=== PATIENT | female | born 1995 | race Caucasian/White ===

== ENCOUNTER 2020-09-27 07:20 | Observation (INO) | payer OTHER ==
[2020-09-27] MEDS ORDERED: Misoprostol 50 MCG (1/2 of 100 MCG) Tab VAG ONE (08:15)
[2020-09-27] MEDS ORDERED: Sodium Chloride 0.9% 10 ML Syringe FLUSH PRN (08:19)
--- NOTE | 2020-09-27 08:30 | PCM.LDHP ---
L&D History of Present Illness - General Date of Service: 09/27/20 (induction for HTN ) Admit Problem/Dx: Patient Status Order with Admit Dx/Problem 09/27/20 08:20 Patient Status [ADT] Routine Admission Diagnosis/Problem Admission Diagnosis/Problem Gestational hypertension Source of Information: Patient History Limitations: Reports: No Limitations - History of Present Illness Introduction:: 25 year old G1 who is 39 weeks presents for induction of labor for gestational hypertension (controlled with medication) and hyperthyroid of . CHIARA 10/04/20. Has struggled through her with hyperemesis, contractions and then elevated blood pressure has been on Labetalol since 32 weeks. 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: Reports: : 1 LMP (Approximate): (CHIARA 10/04/20) H&P Review of Systems - Review of Systems: Review Of Systems: See Below General: Reports: No Symptoms HEENT: Reports: No Symptoms Pulmonary: Reports: No Symptoms Cardiovascular: Denies: Edema Gastrointestinal: Reports: Decreased Appetite, Nausea Genitourinary: Reports: No Symptoms Musculoskeletal: Reports: No Symptoms Skin: Reports: No Symptoms Psychiatric: Reports: No Symptoms Neurological: Reports: No Symptoms Hematologic/Lymphatic: Reports: No Symptoms Immunologic: Reports: No Symptoms L&D Exam - Exam Exam: See Below - OB Specific Contraction Intensity: Mild Movement: Active Heart Tones: Present Heart Tones per Min: 120 Heart Rate (FHR) Variability: Moderate (6-25 bmp) Presentation: Vertex Estimated Weight: 6-7 pounds - Leung Score Leung Score Cervix Position: Midposition Leung Score Consistency: Soft Leung Score Effacement: 51-70% Leung Score Dilation: 1-2 cm Leung Score Infant's Station: -1 ,0 Leung Score Total: 8 - Exam General: Alert, Oriented HEENT: PERRLA, Conjunctiva Clear, Mucosa Moist & [place] Neck: Supple Lungs: Normal Respiratory Effort Cardiovascular: Regular Rate GI/Abdominal Exam: Soft Rectal Exam: Normal Exam Genitourinary: Normal external exam, Cervical dilitation, Enlarged uterus Back Exam: Full Range of Motion Extremities: Non-Tender, No Pedal Edema, Normal Capillary Refill Skin: Warm Neurological: Cranial Nerves Intact Psychiatric: Alert, Normal Affect, Normal Mood - Patient Data Lab Results Last 24 hrs: Laboratory Results - last 24 hr 09/27/20 09/27/20 09/27/20 Range/Units 07:27 07:28 07:45 WBC 7.9 (4.5-11.0) K/uL RBC 3.71 (3.30-5.50) M/uL Hgb 11.2 L (12.0-15.0) g/dL Hct 33.7 L (36.0-48.0) % MCV 91 (80-98) fL MCH 30 (27-31) pg MCHC 33 (32-36) % Plt Count 203 (150-400) K/uL Neut % (Auto) 62 (36-66) % Lymph % (Auto) 29 (24-44) % [place] % (Auto) 8 H (2-6) % Eos % (Auto) 1 L (2-4) % Baso % (Auto) 0 (0-1) % Urine Color Yellow (YELLOW) Urine Appearance Slightly cloudy A (CLEAR) Urine pH 6.5 (5.0-8.0) Ur Specific [place] 1.015 (1.008-1.030) Urine Protein Negative (NEGATIVE) mg/dL Urine Glucose (UA) Negative (NEGATIVE) mg/dL Urine Ketones Negative (NEGATIVE) mg/dL Urine Occult Blood Negative (NEGATIVE) Urine Nitrite Negative (NEGATIVE) Urine Bilirubin Negative (NEGATIVE) Urine Urobilinogen 0.2 (0.2-1.0) EU/dL Ur Leukocyte Esterase Negative (NEGATIVE) Urine RBC Not seen (0-5) Urine WBC 0-5 (0-5) Ur Epithelial Cells Moderate Amorphous Sediment Not seen Urine Bacteria Many Urine Mucus Not seen Urine Opiates Screen Negative (NEGATIVE) Ur Oxycodone Screen Negative (NEGATIVE) Urine Methadone Screen Negative (NEGATIVE) Ur Propoxyphene Screen Negative (NEGATIVE) Ur Barbiturates Screen Negative (NEGATIVE) Ur Tricyclics Screen Negative (NEGATIVE) Ur Phencyclidine Scrn Negative (NEGATIVE) Ur Amphetamine Screen Negative (NEGATIVE) U Methamphetamines Scrn Negative (NEGATIVE) Urine MDMA Screen Negative (NEGATIVE) U Benzodiazepines Scrn Negative (NEGATIVE) U Cocaine Metab Screen Negative (NEGATIVE) U Marijuana (THC) Screen Negative (NEGATIVE) Result Diagrams: 09/27/20 07:45 - Problem List (1) Hypertension affecting SNOMED Code(s): 17223188261931 ICD Code: O16.9 - UNSPECIFIED MATERNAL HYPERTENSION, UNSPECIFIED TRIMESTER Status: Acute Current Visit: Yes (2) SNOMED Code(s): 89407212 ICD Code: Z34.90 - ENCNTR FOR SUPRVSN OF NORMAL , UNSP, UNSP TRIMESTER Status: Acute Current Visit: Yes Qualifiers: Weeks of gestation: 39 weeks Qualified Code(s): Z3A.39 - 39 weeks gestation of (3) Hyperthyroidism complicating SNOMED Code(s): 62596668651985 ICD Code: O99.280 - ENDO, NUTRITIONAL AND METAB DISEASES COMP PREG, UNSP TRI; E05.90 - THYROTOXICOSIS, UNSP WITHOUT THYROTOXIC CRISIS OR STORM Status: Acute Current Visit: Yes Qualifiers: Trimester: third trimester Qualified Code(s): O99.283 - Endocrine, nutritional and metabolic diseases complicating , third trimester; E05.90 - Thyrotoxicosis, unspecified without thyrotoxic crisis or storm Problem List Initiated/Reviewed/Updated: Yes Orders Last 24hrs: Active Orders 24 hr Category Date Time Status Patient Status [ADT] Routine ADT 09/27/20 08:20 Ordered Communication Order [RC] ASDIRECTED Care 09/27/20 08:20 Ordered Heart Tones [RC] PER UNIT ROUTINE Care 09/27/20 08:20 Ordered Non Stress Test [RC] Click to Edit Care 09/27/20 08:20 Ordered May Shower [RC] ASDIRECTED Care 09/27/20 08:19 Ordered Notify Provider Vital Signs [RC] PRN Care 09/27/20 08:19 Ordered Notify Provider [RC] PRN Care 09/27/20 08:20 Ordered Up ad Alena [RC] ASDIRECTED Care 09/27/20 08:19 Ordered Vital Signs [RC] PER UNIT ROUTINE Care 09/27/20 08:20 Ordered Regular Diet [DIET] Diet 09/27/20 Dinner Ordered BPP wo NST [US] Routine Exams 09/27/20 07:00 Ordered Oxytocin/Normal Saline [Pitocin in NS 20 Units/1,000 ML Med 09/27/20 08:24 Ordered ] 20 unit in 1,000 ml IV ONETIME Sodium Chloride 0.9% [Saline Flush] Med 09/27/20 08:19 Ordered 10 ml FLUSH ASDIRECTED PRN Saline Lock Insert [OM.PC] Routine Oth 09/27/20 08:20 Ordered Resuscitation Status Routine Resus Stat 09/27/20 08:19 Ordered Medication Orders Oxytocin/Sodium Chloride (Pitocin In Ns 20 Units/1,000 Ml) 20 unit in 1,000 mls @ 999 mls/hr IV ONETIME ONE; Protocol Stop: 09/27/20 09:24 Sodium Chloride (Sodium Chloride 0.9% 10 Ml Syringe) 10 ml FLUSH ASDIRECTED PRN PRN Reason: Keep Vein Open Assessment/Plan Comment:: 09/27/20 39 week G1 IUP with gestation hypertension and hyperthyroid induction for complications PLAN: Miso 50 mcg this morning and repeat at noon if needed. plan for a vaginal delivery
--- NOTE | 2020-09-27 11:02 | US ---
BPP wo NST INDICATION: induction of labor COMPARISON: None FINDINGS: Single live IUP in: Vertex position heart rate: 121 BPM. Biophysical profile score: 6/8. There is a score of 0 on breathing movement YO: 15.3 cm. IMPRESSION: Abnormal biophysical profile score is 6/8 No breathing movement Results were given to provider at the time of the examination
--- NOTE | 2020-09-27 12:20 | PCM.PNLD ---
Labor Progress Note - VS & Meds Vital Signs: Last Vital Signs Temp 96.4 F L 09/27/20 11:13 Pulse 74 09/27/20 11:13 Resp 18 09/27/20 11:13 BP 137/87 09/27/20 11:13 Pulse Ox 97 09/27/20 11:13 Active Medications: Current Medications Oxytocin/Sodium Chloride (Pitocin In Ns 20 Units/1,000 Ml) 20 unit in 1,000 mls @ 999 mls/hr IV ONETIME ONE; Protocol Stop: 09/27/20 13:00 Sodium Chloride (Sodium Chloride 0.9% 10 Ml Syringe) 10 ml FLUSH ASDIRECTED PRN PRN Reason: Keep Vein Open Discontinued Medications Misoprostol (Misoprostol 50 Mcg (1/2 Of 100 Mcg) Tab) 50 mcg VAG ONETIME ONE Stop: 09/27/20 08:16 Last Admin: 09/27/20 08:08 Dose: 50 mcg Documented by: - Uterine Contractions Uterine Monitoring Mode: External [place] Contraction Frequency (min): 1.5-2 Contraction Duration (sec): 40-80 Contraction Intensity: Mild Uterine Resting Tone: Soft - Monitoring Heart Rate (FHR) Baseline: 120 Heart Rate (FHR) Variability: Moderate (6-25 bmp) Decelerations: None Strip Review: Category I - Vaginal Exam Dilation (cm): 1 Effacement (Percent): 80 Station: 0 Cervical Position: Midposition Sterile Vaginal Exam Performed By: Jessie Maurice Vaginal Exam Comment: baby lower and more effacement - Labor Progress (Free Text) Labor Progress: contractions are close together, so no second dose at this time. membranes stripped doing well up and about reassess at at 3 pm
--- NOTE | 2020-09-27 16:49 | PCM.PNLD ---
Labor Progress Note - VS & Meds Vital Signs: Last Vital Signs Temp 97.4 F 09/27/20 15:04 Pulse 107 H 09/27/20 15:04 Resp 18 09/27/20 15:04 BP 122/69 09/27/20 15:04 Pulse Ox 97 09/27/20 15:04 Active Medications: Current Medications Sodium Chloride (Sodium Chloride 0.9% 10 Ml Syringe) 10 ml FLUSH ASDIRECTED PRN PRN Reason: Keep Vein Open Discontinued Medications Oxytocin/Sodium Chloride (Pitocin In Ns 20 Units/1,000 Ml) 20 unit in 1,000 mls @ 999 mls/hr IV ONETIME ONE; Protocol Stop: 09/27/20 13:00 Misoprostol (Misoprostol 50 Mcg (1/2 Of 100 Mcg) Tab) 50 mcg VAG ONETIME ONE Stop: 09/27/20 08:16 Last Admin: 09/27/20 08:08 Dose: 50 mcg Documented by: - Uterine Contractions Uterine Monitoring Mode: External [place] Contraction Frequency (min): 1.5-5 Contraction Duration (sec): 40-90 Contraction Intensity: Mild Uterine Resting Tone: Soft - Monitoring Heart Rate (FHR) Baseline: 120 Heart Rate (FHR) Variability: Moderate (6-25 bmp) Decelerations: None Strip Review: Category I - Vaginal Exam Dilation (cm): 1 Effacement (Percent): 90 Station: 0 Cervical Position: Midposition Sterile Vaginal Exam Performed By: Jessie Maurice Vaginal Exam Comment: baby lower and more effacement - Labor Progress (Free Text) Labor Progress: no real labor, has done cervical ripening. She is hailey but mildly Plan return on All lab normal reviewed sign and symptoms of active labor and when to return
== END 2020-09-27 17:20 | disposition home or self-care (01) ==
LOC: JP.OB 07:20 → MERGE 07:20
PROVIDERS: ADMIT Nurse Practitioner Family; ATTEND Nurse Practitioner Family
DX: O13.3 Gestational [pregnancy-induced] hypertension without significant proteinuria, third trimester (principal); O99.283 Endocrine, nutritional and metabolic diseases complicating pregnancy, third trimester; E05.90 Thyrotoxicosis, unspecified without thyrotoxic crisis or storm; Z3A.39 39 weeks gestation of pregnancy
CPT/HCPCS: 36415; 76819; 76819-26; 80053; 80305-QW; 81001; 82570; 83615; 83735; 84156; 84443; 84550; 85025; 99211; A9270-GY; G0378

== ENCOUNTER 2020-09-29 06:56 | Inpatient (IN) | payer OTHER ==
[2020-09-29] MEDS ORDERED: Misoprostol 50 MCG (1/2 of 100 MCG) Tab ONE (07:57)
[2020-09-29] MEDS ORDERED: Misoprostol 50 MCG (1/2 of 100 MCG) Tab VAG ONE (07:57)
[2020-09-29] MEDS ORDERED: Sodium Chloride 0.9% 10 ML Syringe FLUSH PRN (08:04)
--- NOTE | 2020-09-29 08:21 | PCM.LDHP ---
L&D History of Present Illness - General Date of Service: 09/29/20 (09/29/20) Admit Problem/Dx: Patient Status Order with Admit Dx/Problem 09/29/20 08:05 Patient Status [ADT] Routine Admission Diagnosis/Problem Admission Diagnosis/Problem Source of Information: Patient History Limitations: Reports: No Limitations - History of Present Illness Timing/Duration: Reports: minutes: (2) Location, : Reports: Abdomen Severity: Mild Improves with: Reports: None Worsens with: Reports: None - Related Data Allergies/Adverse Reactions: Allergies Allergy/AdvReac Type Severity Reaction Status Date / Time No Known Allergies Allergy Verified 09/27/20 14:19 Home Medications: Home Meds Omeprazole 20 mg PO DAILY 09/02/20 [History] Ondansetron [Zofran ODT] 4 mg PO Q6H PRN 09/02/20 [History] Vits #93/Iron Fum/FA [ Formula Tablet] 1 tab PO DAILY 09/02/20 [History] NIFEdipine [Procardia] 10 mg PO Q6HR 09/27/20 [History] hydrOXYzine HCL [hydrOXYzine] 25 mg PO Q6HR PRN 09/27/20 [History] Past Medical History Other Cardiovascular History: Gestational hypertension Respiratory History: Reports: 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 (Approximate): (10/04/20) Endocrine/Metabolic History: Reports: Hyperthyroidism Other Endocrine/Metabolic History: in - Past Surgical History HEENT Surgical History: Reports: Myringotomy w Tube(s), Tonsillectomy Respiratory Surgical History: Reports: None Social & Family History - Tobacco Use Tobacco Use Status *Q: Never Tobacco User Second Hand Smoke Exposure: No - Caffeine Use Caffeine Use: Reports: Coffee, Soda - Recreational Drug Use Recreational Drug Use: No H&P Review of Systems - Review of Systems: Review Of Systems: See Below General: Reports: No Symptoms HEENT: Reports: No Symptoms Pulmonary: Reports: No Symptoms Cardiovascular: Reports: No Symptoms Gastrointestinal: Reports: No Symptoms Genitourinary: Reports: No Symptoms Musculoskeletal: Reports: No Symptoms Skin: Reports: No Symptoms Psychiatric: Reports: No Symptoms Neurological: Reports: No Symptoms Hematologic/Lymphatic: Reports: No Symptoms Immunologic: Reports: No Symptoms L&D Exam - Exam Exam: See Below - Vital Signs Vital Signs: Last Vital Signs Temp 97.4 F 09/29/20 07:25 Pulse 65 09/29/20 07:25 Resp 16 09/29/20 07:25 BP 118/80 09/29/20 07:25 Pulse Ox 97 09/29/20 07:25 Weight: 171 lb - OB Specific Contraction Intensity: Mild Movement: Active Heart Tones: Present Heart Tones per Min: 125 Heart Rate (FHR) Variability: Moderate (6-25 bmp) Presentation: Vertex Estimated Weight: 7-8 pounds - Leung Score Leung Score Cervix Position: Anterior Leung Score Consistency: Soft Leung Score Effacement: >80% Leung Score Dilation: 1-2 cm Leung Score 's Station: -1 ,0 Leung Score Total: 10 - Exam General: Alert, Oriented HEENT: PERRLA, Mucosa Moist & [place] Neck: Supple Lungs: Clear to Auscultation, Normal Respiratory Effort Cardiovascular: Regular Rate, Regular Rhythm GI/Abdominal Exam: Normal Bowel Sounds Rectal Exam: Normal Exam Genitourinary: Normal external exam Back Exam: Normal Inspection Extremities: Normal Inspection, No Pedal Edema Skin: Warm Neurological: Cranial Nerves Intact Psychiatric: Alert, Normal Affect, Normal Mood - Patient Data Lab Results Last 24 hrs: Laboratory Results - last 24 hr 09/29/20 09/29/20 09/29/20 Range/Units 07:03 07:03 07:18 WBC 8.7 (4.5-11.0) K/uL RBC 3.95 (3.30-5.50) M/uL Hgb 11.7 L (12.0-15.0) g/dL Hct 35.9 L (36.0-48.0) % MCV 91 (80-98) fL MCH 30 (27-31) pg MCHC 33 (32-36) % Plt Count 210 (150-400) K/uL Urine Color Yellow (YELLOW) Urine Appearance Cloudy A (CLEAR) Urine pH 6.0 (5.0-8.0) Ur Specific [place] 1.015 (1.008-1.030) Urine Protein Negative (NEGATIVE) mg/dL Urine Glucose (UA) Negative (NEGATIVE) mg/dL Urine Ketones Negative (NEGATIVE) mg/dL Urine Occult Blood Moderate H (NEGATIVE) Urine Nitrite Negative (NEGATIVE) Urine Bilirubin Negative (NEGATIVE) Urine Urobilinogen 0.2 (0.2-1.0) EU/dL Ur Leukocyte Esterase Small H (NEGATIVE) Urine RBC 5-10 H (0-5) Urine WBC 5-10 H (0-5) Ur Epithelial Cells Many Amorphous Sediment Not seen Urine Bacteria Many Urine Mucus Moderate Urine Opiates Screen Negative (NEGATIVE) Ur Oxycodone Screen Negative (NEGATIVE) Urine Methadone Screen Negative (NEGATIVE) Ur Propoxyphene Screen Negative (NEGATIVE) Ur Barbiturates Screen Negative (NEGATIVE) Ur Tricyclics Screen Negative (NEGATIVE) Ur Phencyclidine Scrn Negative (NEGATIVE) Ur Amphetamine Screen Negative (NEGATIVE) U Methamphetamines Scrn Negative (NEGATIVE) Urine MDMA Screen Negative (NEGATIVE) U Benzodiazepines Scrn Negative (NEGATIVE) U Cocaine Metab Screen Negative (NEGATIVE) U Marijuana (THC) Screen Negative (NEGATIVE) Result Diagrams: 09/29/20 07:18 - Problem List (1) SNOMED Code(s): 48584208 ICD Code: Z34.90 - ENCNTR FOR SUPRVSN OF NORMAL , UNSP, UNSP TRIMESTER Status: Acute Current Visit: Yes Qualifiers: Weeks of gestation: 39 weeks Qualified Code(s): Z3A.39 - 39 weeks gestation of (2) Hyperthyroidism complicating SNOMED Code(s): 99300114300347 ICD Code: O99.280 - ENDO, NUTRITIONAL AND METAB DISEASES COMP PREG, UNSP TRI; E05.90 - THYROTOXICOSIS, UNSP WITHOUT THYROTOXIC CRISIS OR STORM Status: Acute Current Visit: Yes Qualifiers: (3) Hypertension affecting SNOMED Code(s): 96736099606130 ICD Code: O16.9 - UNSPECIFIED MATERNAL HYPERTENSION, UNSPECIFIED TRIMESTER Status: Acute Current Visit: Yes Qualifiers: Trimester: third trimester Qualified Code(s): O16.3 - Unspecified maternal hypertension, third trimester Problem List Initiated/Reviewed/Updated: Yes Orders Last 24hrs: Active Orders 24 hr Category Date Time Status Patient Status [ADT] Routine ADT 09/29/20 08:05 Ordered Antiembolic Devices [RC] .Routine Care 09/29/20 08:07 Ordered Communication Order [RC] ASDIRECTED Care 09/29/20 08:05 Ordered Heart Tones [RC] PER UNIT ROUTINE Care 09/29/20 08:05 Ordered Non Stress Test [RC] Click to Edit Care 09/29/20 08:05 Ordered May Shower [RC] ASDIRECTED Care 09/29/20 08:04 Ordered Notify Provider Vital Signs [RC] PRN Care 09/29/20 08:04 Ordered Notify Provider [RC] PRN Care 09/29/20 08:05 Ordered Up ad Alena [RC] ASDIRECTED Care 09/29/20 08:04 Ordered VTE/DVT Education [RC] Click to Edit Care 09/29/20 08:07 Ordered Vital Signs [RC] PER UNIT ROUTINE Care 09/29/20 08:05 Ordered Regular Diet [DIET] Diet 09/29/20 Dinner Ordered Sodium Chloride 0.9% [Saline Flush] Med 09/29/20 08:04 Ordered 10 ml FLUSH ASDIRECTED PRN DVT/VTE Prophylaxis Reflex [OM.PC] Routine Oth 09/29/20 08:04 Ordered Saline Lock Insert [OM.PC] Routine Oth 09/29/20 08:05 Ordered Resuscitation Status Routine Resus Stat 09/29/20 08:04 Ordered Medication Orders Sodium Chloride (Sodium Chloride 0.9% 10 Ml Syringe) 10 ml FLUSH ASDIRECTED PRN PRN Reason: Keep Vein Open Assessment/Plan Comment:: 09/29/20 39 2/7 weeks. G1 history of hyperthyroid of and gestational hypertension doing well, reactive NST. Cat one strip Labs: HIV neg GBS neg Rubella immune hgb 11.7 Plan Miso 50 mcg vaginally reassess at noon plan for vaginal delivery
--- NOTE | 2020-09-29 12:03 | PCM.PNLD ---
Labor Progress Note - VS & Meds Vital Signs: Last Vital Signs Temp 97.4 F 09/29/20 07:25 Pulse 65 09/29/20 07:25 Resp 16 09/29/20 07:25 BP 116/80 09/29/20 08:30 Pulse Ox 97 09/29/20 07:25 Active Medications: Current Medications Oxytocin/Sodium Chloride (Pitocin In Ns 20 Units/1,000 Ml) 20 unit in 1,000 mls @ 3 mls/hr IV TITRATE ANASTACIO; Protocol Sodium Chloride (Sodium Chloride 0.9% 10 Ml Syringe) 10 ml FLUSH ASDIRECTED PRN PRN Reason: Keep Vein Open Discontinued Medications Misoprostol (Misoprostol 50 Mcg (1/2 Of 100 Mcg) Tab) Confirm Administered Dose 50 mcg .ROUTE .STK-MED ONE Stop: 09/29/20 07:58 Last Admin: 09/29/20 08:56 Dose: Not Given Documented by: Misoprostol (Misoprostol 50 Mcg (1/2 Of 100 Mcg) Tab) 50 mcg VAG ONETIME ONE Stop: 09/29/20 07:58 Last Admin: 09/29/20 07:57 Dose: 50 mcg Documented by: - Uterine Contractions Uterine Monitoring Mode: External [place] Contraction Frequency (min): 1-3 Contraction Duration (sec): 60-140 Contraction Intensity: Strong Uterine Resting Tone: Soft - Monitoring Monitor Mode: Doppler/Auscultation Heart Rate (FHR) Baseline: 130 Heart Rate (FHR) Variability: Moderate (6-25 bmp) Decelerations: None Strip Review: Category I - Vaginal Exam Dilation (cm): 2-3 Effacement (Percent): 90 Station: 0 Cervical Position: Anterior Sterile Vaginal Exam Performed By: Jessie Maurice - Labor Progress (Free Text) Labor Progress: early labor, cervix changing Contractions strong. Plan for vaginal delivery
--- NOTE | 2020-09-29 14:41 | PCM.PNLD ---
Labor Progress Note - VS & Meds Vital Signs: Last Vital Signs Temp 97.4 F 09/29/20 13:00 Pulse 65 09/29/20 13:00 Resp 16 09/29/20 13:00 BP 116/80 09/29/20 08:30 Pulse Ox 97 09/29/20 07:25 Active Medications: Current Medications Oxytocin/Sodium Chloride (Pitocin In Ns 20 Units/1,000 Ml) 20 unit in 1,000 mls @ 3 mls/hr IV TITRATE ANASTACIO; Protocol Sodium Chloride (Sodium Chloride 0.9% 10 Ml Syringe) 10 ml FLUSH ASDIRECTED PRN PRN Reason: Keep Vein Open Discontinued Medications Misoprostol (Misoprostol 50 Mcg (1/2 Of 100 Mcg) Tab) Confirm Administered Dose 50 mcg .ROUTE .STK-MED ONE Stop: 09/29/20 07:58 Last Admin: 09/29/20 08:56 Dose: Not Given Documented by: Misoprostol (Misoprostol 50 Mcg (1/2 Of 100 Mcg) Tab) 50 mcg VAG ONETIME ONE Stop: 09/29/20 07:58 Last Admin: 09/29/20 07:57 Dose: 50 mcg Documented by: - Uterine Contractions Uterine Monitoring Mode: External [place] Contraction Frequency (min): 1-2 Contraction Duration (sec): 70-90 Contraction Intensity: Strong Uterine Resting Tone: Soft - Monitoring Monitor Mode: Doppler/Auscultation Heart Rate (FHR) Baseline: 130 Heart Rate (FHR) Variability: Moderate (6-25 bmp) Decelerations: None Strip Review: Category I - Vaginal Exam Dilation (cm): 3-4 Effacement (Percent): 90 Station: 0 Cervical Position: Anterior Sterile Vaginal Exam Performed By: Jessie Maurice Vaginal Exam Comment: AROM clear fluid - Labor Progress (Free Text) Labor Progress: Cat one strip AROM clear fluid coping well Plan for vaginal delivery
[2020-09-29] MEDS ORDERED: fentaNYL 100 MCG/2 ML SDV IVPUSH STA (16:32)
[2020-09-29] MEDS ORDERED: ePHEDrine 50 MG/ML SDV IVPUSH PRN (17:21)
[2020-09-29] MEDS ORDERED: Lactated Ringers 1,000 ML IV ONE (17:21)
--- NOTE | 2020-09-29 17:22 | PCM.PNLD ---
Labor Progress Note - VS & Meds Vital Signs: Last Vital Signs Temp 97.4 F 09/29/20 13:00 Pulse 65 09/29/20 13:00 Resp 16 09/29/20 13:00 BP 116/80 09/29/20 08:30 Pulse Ox 97 09/29/20 07:25 Active Medications: Current Medications Oxytocin/Sodium Chloride (Pitocin In Ns 20 Units/1,000 Ml) 20 unit in 1,000 mls @ 3 mls/hr IV TITRATE ANASTACIO; Protocol Sodium Chloride (Sodium Chloride 0.9% 10 Ml Syringe) 10 ml FLUSH ASDIRECTED PRN PRN Reason: Keep Vein Open Discontinued Medications Fentanyl (Fentanyl 100 Mcg/2 Ml Sdv) 100 mcg IVPUSH ONETIME STA Stop: 09/29/20 16:33 Last Admin: 09/29/20 16:32 Dose: 100 mcg Documented by: Misoprostol (Misoprostol 50 Mcg (1/2 Of 100 Mcg) Tab) Confirm Administered Dose 50 mcg .ROUTE .STK-MED ONE Stop: 09/29/20 07:58 Last Admin: 09/29/20 08:56 Dose: Not Given Documented by: Misoprostol (Misoprostol 50 Mcg (1/2 Of 100 Mcg) Tab) 50 mcg VAG ONETIME ONE Stop: 09/29/20 07:58 Last Admin: 09/29/20 07:57 Dose: 50 mcg Documented by: - Uterine Contractions Uterine Monitoring Mode: [place] Contraction Frequency (min): 1-2 Contraction Duration (sec): 40-90 Contraction Intensity: Strong Uterine Resting Tone: Soft - Monitoring Monitor Mode: Doppler/Auscultation Heart Rate (FHR) Baseline: 130 Heart Rate (FHR) Variability: Moderate (6-25 bmp) Decelerations: None Strip Review: Category I - Vaginal Exam Dilation (cm): 5 Effacement (Percent): 100 Station: 1 Cervical Position: Anterior Sterile Vaginal Exam Performed By: Jessie Maurice Vaginal Exam Comment: AROM clear fluid - Labor Progress (Free Text) Labor Progress: currently wants an epidural for pain management
[2020-09-29] MEDS ORDERED: Ropivacaine 100 ML ONE (18:31)
--- NOTE | 2020-09-29 19:11 | ANES ---
DATE OF SERVICE: 09/29/2020 PROCEDURE: Labor epidural. INDICATIONS: I was called this afternoon from the OB Department for a lady requesting a labor epidural, who is in for a labor induction. I was at the bedside at approximately 17:35. A brief history and physical was done with the patient. The patient is completely healthy, has no allergies. Platelet count was noted to be 210, is not currently on any blood thinners. Risks and benefits including intravascular injection of local anesthetic, subarachnoid headache, and risk for infection were all discussed with the patient. The patient verbalizes her understanding, wishes to proceed with the labor epidural at this time. TECHNIQUE: The patient was sat at the edge of the bed. Betadine prep x3 to the lumbar region was done. Sterile drape was placed. 1% lidocaine skin wheal and deep was done. A 17-gauge Tuohy needle was inserted at approximately the L3-4 position. Loss of resistance was easily achieved. Negative paresthesia, negative heme, negative CSF were noted. Catheter was easily threaded through the Touhy needle. The Tuohy needle was then taken out. The catheter was pulled back and secured at approximately 14 cm. Loss resistance on the Tuohy needle was noted to be about 5.5 cm. After the catheter was secured, 5 mL of test dose was done and the catheter was then completely secured. The patient was then laid in the supine position with left uterine displacement. The patient showed no signs of subarachnoid block or an intravascular injection of local anesthetic. I then proceeded to give the patient 12 mL bolus of 0.2% ropivacaine via the epidural, and shortly after that, the patient stated that she felt like she needed to push. Jessie Maurice was in the room, said the patient was complete; so, I did not ever start her on a ropivacaine drip via the epidural because she was complete. The patient tolerated the overall procedure without difficulty. Difficult to assess how well the epidural was because shortly after we laid her down, she was complete and ready to push. We will be available as needed for the patient. Abhinav Sebastian CRNA /[id number]
[2020-09-29] MEDS ORDERED: Oxytocin 10 Units/1 ML SDV ONE (19:16)
[2020-09-29] MEDS ORDERED: Mineral Oil 10 ML Bottle ONE (19:16)
[2020-09-29] MEDS ORDERED: Naloxone 0.4 MG/ML SDV ONE (19:16)
[2020-09-29] MEDS ORDERED: Lidocaine 1% 20 ML MDV INJECT ONE (19:30)
[2020-09-29] MEDS ORDERED: Methylergonovine 0.2 MG/1 ML Amp ONE (19:30)
[2020-09-29] MEDS ORDERED: Carboprost Tromethamine 250 MCG/1 ML Amp ONE (19:30)
[2020-09-29] MEDS ORDERED: Misoprostol 200 MCG Tab ONE (19:30)
[2020-09-29] MEDS ORDERED: Misoprostol 200 MCG Tab PO ONE (19:30)
[2020-09-29] MEDS ORDERED: Sodium Chloride 0.9% 50 ML ONE (19:55)
[2020-09-29] MEDS ORDERED: fentaNYL 100 MCG/2 ML SDV ONE ×2 (20:49→22:04)
[2020-09-29] MEDS ORDERED: Midazolam 1 MG/ML 2 ML SDV ONE (20:50)
[2020-09-29] MEDS ORDERED: Propofol 200 MG/20 ML SDV ONE (20:50)
[2020-09-29] MEDS ORDERED: Ondansetron 4 MG/2 ML SDV ONE (20:50)
[2020-09-29] MEDS ORDERED: Rocuronium 50 MG/5 ML Vial ONE (20:50)
[2020-09-29] MEDS ORDERED: Succinylcholine 200 MG/10 ML MDV ONE (20:50)
[2020-09-29] MEDS ORDERED: Dexamethasone 4 MG/ML SDV ONE (20:50)
[2020-09-29] MEDS ORDERED: Bupivacaine 0.5% 50 ML MDV ONE (21:02)
[2020-09-29] MEDS ORDERED: Lidocaine 1% with EPINEPHrine 1:100,000 50 ML MDV ONE (21:02)
[2020-09-29] MEDS ORDERED: Witch Hazel Medicated Pads 100/Jar TOP ONE (21:13)
[2020-09-29] MEDS ORDERED: Benzocaine 20% Top Spray 56 GM Bottle TOP PRN (21:13)
[2020-09-29] MEDS ORDERED: Hydrocortisone 2.5% Crm 30 GM Tube TOP PRN (21:13)
[2020-09-29] MEDS ORDERED: Sodium Chloride 0.9% 10 ML ONE ×2 (21:27→21:47)
[2020-09-29] MEDS ORDERED: cefOXitin 2 GM Vial ONE (21:27)
[2020-09-29] MEDS ORDERED: Meropenem 500 MG SDV ONE (21:36)
[2020-09-29] MEDS ORDERED: ePHEDrine 50 MG/ML SDV ONE (21:47)
--- NOTE | 2020-09-29 21:48 | PCM.DEL ---
L & D Note - General Info Date of Service: 09/29/20 (delivery) Mother's Due Date: 10/04/20 - Delivery Note Labor: Spontaneous Cervical Ripening Method: Misoprostil Delivery Outcome: Stillbirth Delivery Method: Spontaneous Vaginal Delivery-Single Infant Delivery Mode: Vacuum Extraction Presentation: Left Occiput Transverse (LOT) Nuchal Cord: Present, Reduced Anesthesia Type: Epidural Anesthetic: Lidocaine (Xylocaine) 0.5% Plain Local Anesthetic Volume: 5cc Amniotic Fluid Description: Meconium Stained Episiotomy Type: Left Mediolateral Laceration: 4th Degree Suture type: Chromic Suture size: 3-0 Placenta: Intact, Spontaneous Cord: 3 Vessels Estimated Blood Loss: 700 Resuscitation Needed: Yes : Suctioned (see note) Score 1 min: 0 Score 5 min: 0 Score 10 min: 0 Post Delivery Events: Unexpected Stillbirth Second Stage Interventions: Reports: Second Nurse Reviewed Heart Tones, Encouragement Given, Pushing Effectively, Pushing, Knee Chest Position, Pushing, Left Side, Pushing, Right Side Delivery Comments (Free Text/Narrative):: This 25 year old stillborn. at 39 3/7 gestation delivered a stillbirth fetus in LOT position with a tight nuchal cord. Ivet was complete at 1806, first push at 1808. heart tone dipped into the 70's and o2 was started on mother. At 181 kiwi one pull set brought fetus down to a plus 2 position. 181 position change to knee chest and she continued to push. We talked about the possibility that this would be a c section if baby continued to have issues with pushing. baby recovered well in knee chest and mother made progress pushing. Ivet's legs became wobbly from epidural and she was placed on her left side to push as fetus could tolerate back pushing. 183 Kiwi three pulls with pop off at the end, Baby now crowing. 183 left lateral episiotomy. Mother turned to right side 184 for pushing, recovery to 120 between contractions. 184 called stat c section for nonreassuring heart tone . Mother wanted to continue pushing while the surgical team arrived. 185 baby delivered into my arms, she was pale and floppy at delivery, baby handed off to MARKETING STRATEGY ANALYST. He was unable to aerate with PPV so ET tube was placed successfully and staff were unable to produce chest rise with PPV. See code notes for the rest of resuscitation attempt. Placenta was expressed spontaneously intact. Episiotomy extended to a fourth degree with delivery of large baby. I had to pull the baby out after reducing a very tight cord. EBL 700cc Mother to OR to repair 4 th degree tear. Baby to parents arms. wt 7-14 Induction Criteria - Leung Score Leung Score Dilation: 1-2 cm Leung Score Effacement: >80% Leung Score Infant's Station: -1 ,0 Leung Score Consistency: Soft Leung Score Cervix Position: Anterior Leung Score Total: 10 Leung Score Presenting Part: Reports: Cephalic - Induction Gestational Age >/= 39 wks: Yes Estimated Pelvis: Reports: Adequate Reassuring Monitoring Strip: Yes Absence of Tachy Systole: Yes Vacuum Extractor Progress Note - Alternative Labor Strategies Considered Alternative Labor Strategies Considered:: Reports: Yes Strategies Considered:: Reports: Contraction Intensity Adequate, Position Changes Used to Facilitate Rotation & Descent, Empty Bladder Indications Considered:: Reports: Yes Indications:: Reports: Suspicion of Immediate or Potential Compromise Time Out:: Reports: Yes - Patient Prepared Patient Prepared:: Reports: Yes Informed Consent:: Reports: Verbal Risks: Reports: Yes Risks Include:: Reports: Laceration, Shoulder Dystocia, Maternal Injury Anesthesia/Analgesia Adequate:: Reports: Yes - Probability of Success High Probability of Success:: Reports: Yes Weight Estimated:: Reports: AGA Patient Diabetic:: Reports: No Pelvis Adequate:: Reports: Yes Asynclitic:: Reports: No - Application Time Maximum Application Time & Number of Pop-Offs Predetermined:: Reports: Yes Type of Vacuum Used:: Reports: Cup: Mushroom type Vacuum Extraction: Unsuccessful (successful in getting her low enough for mom to push out) - Exit Strategy Exit strategy available:: Reports: Yes and resuscitation teams readily available:: Reports: Yes - General Info Date of Service: 09/29/20 Admission Dx/Problem (Free Text): Patient Status Order with Admit Dx/Problem 09/29/20 08:05 Patient Status [ADT] Routine Admission Diagnosis/Problem Admission Diagnosis/Problem Functional Status: Reports: Pain Controlled - Review of Systems General: Reports: No Symptoms HEENT: Reports: No Symptoms Pulmonary: Reports: No Symptoms Cardiovascular: Reports: No Symptoms Gastrointestinal: Reports: No Symptoms Genitourinary: Reports: No Symptoms Musculoskeletal: Reports: No Symptoms Skin: Reports: No Symptoms Neurological: Reports: No Symptoms Psychiatric: Reports: No Symptoms - Patient Data Vitals - Most Recent: Last Vital Signs Temp 97.4 F 09/29/20 13:00 Pulse 65 09/29/20 13:00 Resp 16 09/29/20 13:00 BP 116/80 09/29/20 08:30 Pulse Ox 97 09/29/20 07:25 Weight - Most Recent: 171 lb I&O - Last 24 Hours: Intake & Output 09/29/20 09/29/20 09/29/20 06:59 14:59 22:59 Intake Total 1240 500 Balance 1240 500 Lab Results Last 24 Hours: Laboratory Results - last 24 hr 09/29/20 09/29/20 09/29/20 Range/Units 07:03 07:03 07:18 WBC 8.7 (4.5-11.0) K/uL RBC 3.95 (3.30-5.50) M/uL Hgb 11.7 L (12.0-15.0) g/dL Hct 35.9 L (36.0-48.0) % MCV 91 (80-98) fL MCH 30 (27-31) pg MCHC 33 (32-36) % Plt Count 210 (150-400) K/uL Urine Color Yellow (YELLOW) Urine Appearance Cloudy A (CLEAR) Urine pH 6.0 (5.0-8.0) Ur Specific [place] 1.015 (1.008-1.030) Urine Protein Negative (NEGATIVE) mg/dL Urine Glucose (UA) Negative (NEGATIVE) mg/dL Urine Ketones Negative (NEGATIVE) mg/dL Urine Occult Blood Moderate H (NEGATIVE) Urine Nitrite Negative (NEGATIVE) Urine Bilirubin Negative (NEGATIVE) Urine Urobilinogen 0.2 (0.2-1.0) EU/dL Ur Leukocyte Esterase Small H (NEGATIVE) Urine RBC 5-10 H (0-5) Urine WBC 5-10 H (0-5) Ur Epithelial Cells Many Amorphous Sediment Not seen Urine Bacteria Many Urine Mucus Moderate Urine Opiates Screen Negative (NEGATIVE) Ur Oxycodone Screen Negative (NEGATIVE) Urine Methadone Screen Negative (NEGATIVE) Ur Propoxyphene Screen Negative (NEGATIVE) Ur Barbiturates Screen Negative (NEGATIVE) Ur Tricyclics Screen Negative (NEGATIVE) Ur Phencyclidine Scrn Negative (NEGATIVE) Ur Amphetamine Screen Negative (NEGATIVE) U Methamphetamines Scrn Negative (NEGATIVE) Urine MDMA Screen Negative (NEGATIVE) U Benzodiazepines Scrn Negative (NEGATIVE) U Cocaine Metab Screen Negative (NEGATIVE) U Marijuana (THC) Screen Negative (NEGATIVE) SARS CoV-2 RNA Rapid FLAQUITA 09/29/20 Range/Units 09:53 WBC (4.5-11.0) K/uL RBC (3.30-5.50) M/uL Hgb (12.0-15.0) g/dL Hct (36.0-48.0) % MCV (80-98) fL MCH (27-31) pg MCHC (32-36) % Plt Count (150-400) K/uL Urine Color (YELLOW) Urine Appearance (CLEAR) Urine pH (5.0-8.0) Ur Specific [place] (1.008-1.030) Urine Protein (NEGATIVE) mg/dL Urine Glucose (UA) (NEGATIVE) mg/dL Urine Ketones (NEGATIVE) mg/dL Urine Occult Blood (NEGATIVE) Urine Nitrite (NEGATIVE) Urine Bilirubin (NEGATIVE) Urine Urobilinogen (0.2-1.0) EU/dL Ur Leukocyte Esterase (NEGATIVE) Urine RBC (0-5) Urine WBC (0-5) Ur Epithelial Cells Amorphous Sediment Urine Bacteria Urine Mucus Urine Opiates Screen (NEGATIVE) Ur Oxycodone Screen (NEGATIVE) Urine Methadone Screen (NEGATIVE) Ur Propoxyphene Screen (NEGATIVE) Ur Barbiturates Screen (NEGATIVE) Ur Tricyclics Screen (NEGATIVE) Ur Phencyclidine Scrn (NEGATIVE) Ur Amphetamine Screen (NEGATIVE) U Methamphetamines Scrn (NEGATIVE) Urine MDMA Screen (NEGATIVE) U Benzodiazepines Scrn (NEGATIVE) U Cocaine Metab Screen (NEGATIVE) U Marijuana (THC) Screen (NEGATIVE) SARS CoV-2 RNA Rapid FLAQUITA Negative Med Orders - Current: Current Medications Benzocaine (Benzocaine 20% Top [place] 56 Gm Bottle) 0 gm TOP Q4H ONE Stop: 09/29/20 21:14 Ephedrine Sulfate (Ephedrine 50 Mg/Ml Sdv) 10 mg IVPUSH ASDIRECTED PRN PRN Reason: Hypotension Hydrocortisone (Hydrocortisone 2.5% Crm 30 Gm Tube) 1 gm TOP ASDIRECTED PRN PRN Reason: Itching Oxytocin/Sodium Chloride (Pitocin In Ns 20 Units/1,000 Ml) 20 unit in 1,000 mls @ 3 mls/hr IV TITRATE ANASTACIO; Protocol Sodium Chloride (Sodium Chloride 0.9% 10 Ml Syringe) 10 ml FLUSH ASDIRECTED PRN PRN Reason: Keep Vein Open Jesse Ro ([place] Ro Medicated Pads 100/Jar) 1 pad TOP ASDIRECTED ONE Stop: 09/29/20 21:14 Discontinued Medications Bupivacaine HCl (Bupivacaine 0.5% 50 Ml Mdv) Confirm Administered Dose 50 ml .ROUTE .STK-MED ONE Stop: 09/29/20 21:03 Carboprost Tromethamine (Carboprost Tromethamine 250 Mcg/1 Ml Amp) Confirm Administered Dose 250 mcg .ROUTE .STK-MED ONE Stop: 09/29/20 19:31 Dexamethasone (Dexamethasone 4 Mg/Ml Sdv) Confirm Administered Dose 4 mg .ROUTE .STK-MED ONE Stop: 09/29/20 20:51 Fentanyl (Fentanyl 100 Mcg/2 Ml Sdv) 100 mcg IVPUSH ONETIME STA Stop: 09/29/20 16:33 Last Admin: 09/29/20 16:32 Dose: 100 mcg Documented by: Fentanyl (Fentanyl 100 Mcg/2 Ml Sdv) Confirm Administered Dose 100 mcg .ROUTE .STK-MED ONE Stop: 09/29/20 20:50 Lactated Ringer's (Ringers, Lactated) 1,000 mls @ 999 mls/hr IV .BOLUS ONE Stop: 09/29/20 18:21 Ropivacaine (Naropin 0.2%) Confirm Administered Dose 100 mls @ as directed .ROUTE .STK-MED ONE Stop: 09/29/20 18:32 Oxytocin/Sodium Chloride (Pitocin In Ns 20 Units/1,000 Ml) Confirm Administered Dose 20 unit in 1,000 mls @ as directed .ROUTE .STK-MED ONE Stop: 09/29/20 19:17 Sodium Chloride (Normal Saline) Confirm Administered Dose 50 mls @ as directed .ROUTE .STK-MED ONE Stop: 09/29/20 19:56 Lidocaine HCl (Lidocaine 1% 50 Ml Mdv) Confirm Administered Dose 100 ml .ROUTE .STK-MED ONE Stop: 09/29/20 19:17 Lidocaine/Epinephrine (Lidocaine 1% With Epinephrine 1:100,000 50 Ml Mdv) Confirm Administered Dose 50 ml .ROUTE .STK-MED ONE Stop: 09/29/20 21:03 Methylergonovine Maleate (Methylergonovine 0.2 Mg/1 Ml Amp) Confirm Administered Dose 0.2 mg .ROUTE .STK-MED ONE Stop: 09/29/20 19:31 Midazolam HCl (Midazolam 1 Mg/Ml 2 Ml Sdv) Confirm Administered Dose 2 mg .ROUTE .STK-MED ONE Stop: 09/29/20 20:51 Mineral Oil (Mineral Oil 10 Ml Bottle) Confirm Administered Dose 10 ml .ROUTE .STK-MED ONE Stop: 09/29/20 19:17 Misoprostol (Misoprostol 50 Mcg (1/2 Of 100 Mcg) Tab) Confirm Administered Dose 50 mcg .ROUTE .STK-MED ONE Stop: 09/29/20 07:58 Last Admin: 09/29/20 08:56 Dose: Not Given Documented by: Misoprostol (Misoprostol 50 Mcg (1/2 Of 100 Mcg) Tab) 50 mcg VAG ONETIME ONE Stop: 09/29/20 07:58 Last Admin: 09/29/20 07:57 Dose: 50 mcg Documented by: Misoprostol (Misoprostol 200 Mcg Tab) Confirm Administered Dose 800 mcg .ROUTE .STK-MED ONE Stop: 09/29/20 19:31 Naloxone HCl (Naloxone 0.4 Mg/Ml Sdv) Confirm Administered Dose 0.4 mg .ROUTE .STK-MED ONE Stop: 09/29/20 19:17 Ondansetron HCl (Ondansetron 4 Mg/2 Ml Sdv) Confirm Administered Dose 4 mg .ROUTE .STK-MED ONE Stop: 09/29/20 20:51 Oxytocin (Oxytocin 10 Units/1 Ml Sdv) Confirm Administered Dose 10 unit .ROUTE .STK-MED ONE Stop: 09/29/20 19:17 Propofol (Propofol 200 Mg/20 Ml Sdv) Confirm Administered Dose 200 mg .ROUTE .STK-MED ONE Stop: 09/29/20 20:51 Rocuronium [place] (Rocuronium 50 Mg/5 Ml Vial) Confirm Administered Dose 50 mg .ROUTE .STK-MED ONE Stop: 09/29/20 20:51 Succinylcholine Chloride (Succinylcholine 200 Mg/10 Ml Mdv) Confirm Administered Dose 200 mg .ROUTE .STK-MED ONE Stop: 09/29/20 20:51 - Exam General: Alert, Oriented HEENT: Pupils Equal Neck: Supple Lungs: Clear to Auscultation, Normal Respiratory Effort Cardiovascular: Regular Rate, Regular Rhythm GI/Abdominal Exam: Soft (Female) Exam: Cervical Dilatation, Enlarged Uterus, Vaginal Bleeding, Vaginal Tears Back Exam: Normal Inspection Extremities: No Pedal Edema, Normal Capillary Refill Skin: Warm, Dry, Intact Neurological: No New Focal Deficit Psy/Mental Status: Alert, Other (sad ) - Problem List & Annotations (1) SNOMED Code(s): 03446731 Code(s): Z34.90 - ENCNTR FOR SUPRVSN OF NORMAL , UNSP, UNSP TRIMESTER Status: Acute Current Visit: Yes Qualifiers: Weeks of gestation: 39 weeks Qualified Code(s): Z3A.39 - 39 weeks gestation of (2) Hyperthyroidism complicating SNOMED Code(s): 53503359704669 Code(s): O99.280 - ENDO, NUTRITIONAL AND METAB DISEASES COMP PREG, UNSP TRI; E05.90 - THYROTOXICOSIS, UNSP WITHOUT THYROTOXIC CRISIS OR STORM Status: Acute Current Visit: Yes Qualifiers: (3) Hypertension affecting SNOMED Code(s): 61385399097567 Code(s): O16.9 - UNSPECIFIED MATERNAL HYPERTENSION, UNSPECIFIED TRIMESTER Status: Acute Current Visit: Yes Qualifiers: Trimester: third trimester Qualified Code(s): O16.3 - Unspecified maternal hypertension, third trimester (4) Hemorrhage after vaginal delivery SNOMED Code(s): 26859191 Code(s): O72.2 - DELAYED AND SECONDARY HEMORRHAGE Status: Acute Current Visit: Yes (5) Fourth degree perineal tear during delivery with problem SNOMED Code(s): 075770059 Code(s): O70.3 - FOURTH DEGREE PERINEAL LACERATION DURING DELIVERY Status: Acute Current Visit: Yes (6) Normal stillborn SNOMED Code(s): 139303697 Code(s): P95 - STILLBIRTH Status: Acute Current Visit: Yes - Problem List Review Problem List Initiated/Reviewed/Updated: Yes - My Orders Last 24 Hours: My Active Orders 09/29/20 08:04 May Shower [RC] ASDIRECTED Notify Provider Vital Signs [RC] PRN Up ad Alena [RC] ASDIRECTED Sodium Chloride 0.9% [Saline Flush] 10 ml FLUSH ASDIRECTED PRN DVT/VTE Prophylaxis Reflex [OM.PC] Routine Resuscitation Status Routine 09/29/20 08:05 Patient Status [ADT] Routine Communication Order [RC] ASDIRECTED Notify Provider [RC] PRN Vital Signs [RC] PER UNIT ROUTINE Saline Lock Insert [OM.PC] Routine 09/29/20 08:07 Antiembolic Devices [RC] .Routine VTE/DVT Education [RC] Click to Edit 09/29/20 09:45 Oxytocin/Normal Saline [Pitocin in NS 20 Units/1,000 ML] 20 unit in 1,000 ml IV TITRATE 09/29/20 Dinner Regular Diet [DIET] 09/29/20 17:21 ePHEDrine [ePHEDrine sulfate] 10 mg IVPUSH ASDIRECTED PRN 09/29/20 17:22 Communication Order [RC] ASDIRECTED Local Anesthetic Infusion Pump [RC] ASDIRECTED PCEA Epidural [RC] ASDIRECTED Urinary Catheter Assessment [RC] ASDIRECTED Epidural Catheter Management [OM.PC] Urgent 09/29/20 17:30 Insert Urinary Catheter [OM.PC] ASDIRECTED 09/29/20 21:13 Patient Status [ADT] Routine Vital Signs [RC] PFP Benzocaine [Wsyd-P-Cydkrbs 20% [place]] See Dose Instructions TOP Q4H ONE Hydrocortisone [Proctozone-HC 2.5% Crm] 1 gm TOP ASDIRECTED PRN witch Ro [Tucks] 1 pad TOP ASDIRECTED ONE 09/30/20 05:11 CBC WITH AUTO DIFF [HEME] AM - Assessment Assessment:: 39 3/7 week with complications. 4th degree tear and hemorrhage, stillborn baby girl - Plan Plan:: 09/29/20 39 2/7 weeks. G1 history of hyperthyroid of and gestational hypertension doing well, reactive NST. Cat one strip Labs: HIV neg GBS neg Rubella immune hgb 11.7 Plan Miso 50 mcg vaginally reassess at noon plan for vaginal delivery 09/30/20 Grief care offered autopsy [employer] [facility] will touch bases with them for donation Parents are here for support Baby named and baptized printed circuit photographer here for pictures Routine post care
[2020-09-29] MEDS: Lidocaine 1% 50 ML MDV ONE ×2 (21:52→22:26)
[2020-09-29] MEDS ORDERED: Lactated Ringers 1,000 ML ONE (22:06)
--- NOTE | 2020-09-29 22:35 | ANES ---
DATE OF SERVICE: 09/29/2020 After Ivet's epidural was placed by me, I was asked by Jessie Maurice to stick around because the baby was having late decelerations, and she wanted me to be available in case she needed help with baby. Approximately 15 minutes after the epidural was placed, I got called for a stat . Immediately went upstairs and into the patient's room, noted that Jessie Maurice was continuing to do a vaginal delivery of the patient and wanted me to stay at the bedside if she was able to vaginally deliver the baby since the team was not here yet. Baby did continue to have decelerations when I was in the room. Was vaginally delivered, and right away after the vaginal delivery, Jessie handed me the baby. Baby was flaccid, blue and was not making any respiratory effort. Did try to bag- valve mask the patient without any improvement, and after a few seconds, decided to go ahead and intubate the patient. Did direct laryngoscopy and intubated the patient using a 3.5 endotracheal cuffless tube and was secured at approximately 8 cm at the lips. Ambu'd right after intubation. Breath sounds were noted bilaterally but very coarse and very rhonchus breath sounds were noted. Also, no gurgling above the stomach at that time. Immediately started chest compressions after endotracheal tube was placed. After several rounds of CPR, baby did not improve. Oxygenation level had not changed. Color had not changed. Baby continued to be flaccid. Did give endotracheal epi. Please refer to the code sheet for the time and dose. Jessie Maurice did come up to the baby's bedside at that time, noted a small leak in the endotracheal tube, pulled the endotracheal tube, tried to bag valve mask the patient to see if we can get a better response. Was unable to get a better oxygenation level or heart rate or pulse, so we reintubated this time using a 4-0 endotracheal tube and did see it under direct laryngoscopy to go through both of the vocal cords. Was a little tight, but was able to get it through both of the vocal cords and was secured at approximately 8.5 to 9 cm. Again, bilateral breath sounds were noted and again breath sounds were very coarse, very rhonchus at that time. Endotracheal tube was suctioned again without really any significant secretions removed or suctioned. CPR was continued throughout this whole time. Almost immediately after the baby was born, another couple rounds of endotracheal epi were given without any success. Never did have noted a heart rate, never did have a great pulse reading for oxygenation level. The patient was blue and flaccid throughout CPR. Did check bilateral breath sounds several different times. Always noted that the breath sounds were bilateral but very rhonchus, very coarse breath sounds were noted every time. Checked above the stomach for air gurgling without any of that several different times too, so was never in the belly or down the esophagus. Like I said, continued CPR from almost the time of delivery all the way through until Jessie Maurice called the time of at 1931. Abhinav Sebastian CRNA /[id number]
[2020-09-29] MEDS ORDERED: Naloxone 0.4 MG/ML SDV IV PRN (23:00)
--- NOTE | 2020-09-29 23:05 | ANES ---
DATE OF SERVICE: 09/29/2020 I was still at the hospital after I had done Ivet's labor epidural because Jessie Maurice wanted me to stick around because the baby was having some significant decelerations, so I was still in the hospital. They called a stat . I immediately went upstairs. Jessie Maurice was continuing to try to have the patient deliver vaginally, but wanted me to stick around because of the baby's heart rate was still continuing to be low. Baby was born, immediately was handed to me. Baby was flaccid, was visibly blue and was not trying to make any respiratory effort, whatsoever. Quickly tried to use puff mask for oxygenation without really any success to revive the baby. Immediately started CPR. Endotracheal tube was placed very quickly after delivery. A 3.0 endotracheal tube was placed and was secured at approximately 8 at the lips. Bilateral breath sounds were difficulty to hear. At that time, breath sounds were very coarse, rhonchi, and were not clear. Continued to bag-valve mask the patient and continued chest compressions. After several minutes, it was noted that there was a leak around the endotracheal tube. Jessie Maurice was there at the bedside. The patient was not oxygenating very well. Checked to see if the tube placement was correct using direct laryngoscopy, was confirmed to be in the right spot between the vocal cords. Continued bag-valve mask, but continued to not have the patient respond, oxygenation or heart rate. Tube was temporarily pulled and Jessie Maurice tried to bag-valve mask the patient without any success for approximately 30 seconds. I then re-intubated the patient using a 4.0 endotracheal cuffless tube to see if we can get a better seal, and I saw it go through the vocal cords that time also. Again, bilateral breath sounds, but again very, very coarse, very rhonchus breath sounds after intubation. No air gurgling noted above the stomach. Continued to do chest compressions and epi via the endotracheal tube. We had done one round of epi shortly after the patient was delivered. Please check the code chart for that. Continued to Ambu the patient through the endotracheal tube without any success. Heart rate, could never find a palpable heart rate. O2 saturation was never visible above 50%. Suctioned the endotracheal tube several times without any significant secretions pulled back. Did a total of 3 rounds of epi via the endotracheal tube without any success. When I did place a 4.0 endotracheal tube, it was at approximately 9 cm at the lips. After approximately 30 to 35 minutes of CPR, Jessie Maurice called the time of at 1931. Abhinav Sebastian CRNA /[id number]
[2020-09-29] MEDS ORDERED: Tranexamic Acid 1,000 MG in Sodium Chloride 0.9% 50 ML IV ONE (23:08)
[2020-09-29] MEDS ORDERED: HYDROmorphone/Normal Saline 15 MG/30 ML PCA IV PRN (23:13)
[2020-09-29] MEDS ORDERED: Dextrose 5%-Lactated Ringers 1,000 ML IV SCH (23:30)
[2020-09-29] MEDS ORDERED: hydrOXYzine HCL 100 MG/2 ML SDV IM PRN (23:31)
[2020-09-29] MEDS ORDERED: Ondansetron 4 MG/2 ML SDV IVPUSH PRN (23:35)
[2020-09-29] MEDS ORDERED: LORazepam 1 MG Tab PO PRN (23:36)
[2020-09-29] MEDS ORDERED: Witch Hazel Medicated Pads 100/Jar TOP PRN (23:45)
[2020-09-30] MEDS: Acetaminophen 500 MG Tab PO SCH ×4 (03:44→21:30)
[2020-09-30] MEDS: cefOXitin 2 GM in Sodium Chloride 0.9% 50 ML IV SCH ×4 (03:44→21:27)
[2020-09-30] MEDS ORDERED: Dextrose 5%-Lactated Ringers 1,000 ML IV SCH (07:10)
[2020-09-30] MEDS: Ibuprofen 600 MG Tab PO SCH ×3 (08:11→21:30)
[2020-09-30] MEDS: hydrOXYzine HCl 25 MG Tab PO PRN ×2 (08:11→23:13)
[2020-09-30] MEDS ORDERED: Docusate Sodium 100 MG Cap PO SCH (09:00)
[2020-09-30] MEDS ORDERED: Benzocaine/Cetylpyridinium/Menthol Lozenge MUCMEM PRN (09:28)
--- NOTE | 2020-09-30 10:04 | PN ---
DATE OF SERVICE: 09/30/2020 SUBJECTIVE: Ivet is postoperative day #1. She states her pain is controlled, although she is itching from the FREIGHT CLERK. Hemoglobin this morning was 6.4, and she is receiving 2 units of packed red blood cells. REVIEW OF SYSTEMS: Remainder of review of systems negative for any pertinent positives and negatives. OBJECTIVE: GENERAL: Ivet Rogers is a pleasant 25-year-old female, color pale. VITAL SIGNS: TPR 97.1, 111, 16, blood pressure 122/75. HEENT: Negative. NECK: Supple. HEART: Regular rate and rhythm. LUNGS: Clear. ABDOMEN: Negative. EXTREMITIES: Negative. ASSESSMENT: Exploration and reconstruction of 4th degree vaginal tear. Date of procedure: 09/29/2020. Surgeon: Narinder Huddleston MD. PLAN: 1. Remove Virk catheter. 2. Ibuprofen 600 mg p.o. scheduled q.6 hours. 3. Senna Plus 2 b.i.d. 4. Regular diet. 5. Hydroxyzine 50 mg q.4 hours p.r.n. itching. 6. Oxycodone 5 mg q.4 hours p.r.n. pain. 7. IV TKO. 8. Check CBC in a.m. 9. We will evaluate p.r.n. or in a.m. Charu Hedrick PA-C /[id number]
[2020-09-30] MEDS: oxyCODONE 5 MG Tab PO PRN ×3 (13:11→23:13)
[2020-09-30] MEDS: Docusate Sodium 100 MG Cap PO SCH ×2 (14:04→21:30)
--- NOTE | 2020-09-30 16:40 | PCM.SN.2 ---
- Free Text/Narrative Note: 09/30/20 S: Patient being cared for by surgical team. Land Leveler team checked in on patient this morning as well to cover obstetrical side of things. She reports her pain is controlled and vaginal bleeding is "okay". She feels dizzy. O: She is crying intermittently, grieving as expected. She has a large support system. is in the room with her. A: Heart: normal heart sounds, no murmur Respiratory: normal respirations, normal lung sounds Uterine involution: FF and bleeding controlled, did not check tear repair Pain controlled P: Discussed grieving, what to do when breast milk comes in. Will continue to check in on patient daily and cover obstetrical needs. Surgical team managing care.
[2020-09-30] MEDS ORDERED: Misoprostol 200 MCG Tab PO ONE (19:30)
[2020-10-01] MEDS: cefOXitin 2 GM in Sodium Chloride 0.9% 50 ML IV SCH ×4 (03:54→20:58)
[2020-10-01] MEDS: Ibuprofen 600 MG Tab PO SCH ×4 (04:00→19:41)
[2020-10-01] MEDS: Acetaminophen 500 MG Tab PO SCH ×4 (04:00→20:58)
[2020-10-01] MEDS: oxyCODONE 5 MG Tab PO PRN ×4 (04:00→23:28)
[2020-10-01] MEDS ORDERED: Magnesium Hydroxide 400 MG/5 ML Susp 30 ML Cup PO PRN (07:37)
[2020-10-01] MEDS: Docusate Sodium 100 MG Cap PO SCH ×2 (10:14→20:58)
--- NOTE | 2020-10-01 11:14 | PN ---
DATE OF SERVICE: 10/01/2020 SUBJECTIVE: Ivet is postop day 2. Pain has been controlled. Hemoglobin is 8.4. This morning, her Virk has been removed and she has been voiding. Vital signs have been stable. Oral intake 1600. Urine output is 2600. REVIEW OF SYSTEMS: Remainder of review of systems negative for any pertinent positives and negatives. OBJECTIVE: GENERAL: Ivet Rogers is a pleasant 25-year-old female. VITAL SIGNS: TPR is 97, 61, 18, blood pressure 103/59. HEENT: Negative. NECK: Supple. HEART: Regular rate and rhythm. LUNGS: Clear. ABDOMEN: Negative. : Deferred. EXTREMITIES: Negative. ASSESSMENT: Exploration and reconstruction, 4th degree vaginal tear. Date of procedure 09/29/2020. Surgeon: Narinder Huddleston MD PLAN: 1. Continue on bowel regime. 2. Milk of magnesia 30 mL b.i.d. p.r.n. We will evaluate p.r.n. or in a.m. Charu Hedrick PA-C /[id number]
[2020-10-01] MEDS: hydrOXYzine HCl 25 MG Tab PO PRN (23:34)
[2020-10-02] MEDS: cefOXitin 2 GM in Sodium Chloride 0.9% 50 ML IV SCH ×2 (04:22→10:22)
[2020-10-02] MEDS: oxyCODONE 5 MG Tab PO PRN ×2 (04:22→12:37)
[2020-10-02] MEDS: Acetaminophen 500 MG Tab PO SCH ×2 (04:22→10:25)
[2020-10-02] MEDS: Ibuprofen 600 MG Tab PO SCH ×2 (04:22→10:25)
[2020-10-02] MEDS ORDERED: Witch Hazel Medicated Pads 100/Jar TOP PRN (08:47)
--- NOTE | 2020-10-02 10:20 | PCM.PN ---
- General Info Date of Service: 10/02/20 Functional Status: Reports: Pain Controlled - Review of Systems General: Reports: Weakness HEENT: Reports: No Symptoms Pulmonary: Reports: No Symptoms Cardiovascular: Reports: No Symptoms Gastrointestinal: Reports: No Symptoms Genitourinary: Reports: No Symptoms Musculoskeletal: Reports: No Symptoms Skin: Reports: No Symptoms Neurological: Reports: No Symptoms Psychiatric: Reports: Other (grieving as expected) - Patient Data Vitals - Most Recent: Last Vital Signs Temp 36.1 C 10/02/20 07:46 Pulse 67 10/02/20 07:46 Resp 16 10/02/20 07:46 BP 108/52 L 10/02/20 07:46 Pulse Ox 97 10/02/20 07:46 Weight - Most Recent: 77.564 kg I&O - Last 24 Hours: Intake & Output 10/01/20 10/02/20 10/02/20 22:59 06:59 14:59 Intake Total 550 1550 Balance 550 1550 Med Orders - Current: Current Medications Acetaminophen (Acetaminophen 500 Mg Tab) 1,000 mg PO Q6H [facility] Last Admin: 10/02/20 04:22 Dose: 1,000 mg Documented by: Benzocaine (Benzocaine 20% Top [place] 56 Gm Bottle) 0 gm TOP Q4H PRN PRN Reason: PERINEAL PAIN Benzocaine/Menthol (Benzocaine/Cetylpyridinium/Menthol Lozenge) 1 lozenge MUCMEM ASDIRECTED PRN PRN Reason: Sore Throat Last Admin: 09/30/20 13:16 Dose: 1 tab Documented by: Docusate Sodium (Docusate Sodium 100 Mg Cap) 100 mg PO BID [facility] Last Admin: 10/01/20 20:58 Dose: 100 mg Documented by: Hydrocortisone (Hydrocortisone 2.5% Crm 30 Gm Tube) 0 gm TOP ASDIRECTED PRN PRN Reason: Itching Hydroxyzine HCl (Hydroxyzine Hcl 100 Mg/2 Ml Sdv) 100 mg IM Q4H PRN PRN Reason: Pain Hydroxyzine HCl (Hydroxyzine Hcl 25 Mg Tab) 50 mg PO Q4H PRN PRN Reason: Itching Last Admin: 10/01/20 23:34 Dose: 50 mg Documented by: Cefoxitin Sodium 2 gm/ Sodium (Chloride) 50 mls @ 100 mls/hr IV Q6H [facility] Last Admin: 10/02/20 04:22 Dose: 100 mls/hr Documented by: Ibuprofen (Ibuprofen 600 Mg Tab) 600 mg PO Q6H [facility] Last Admin: 10/02/20 04:22 Dose: 600 mg Documented by: Lorazepam (Lorazepam 1 Mg Tab) 1 mg PO Q6H PRN PRN Reason: Anxiety Magnesium Hydroxide (Magnesium Hydroxide 400 Mg/5 Ml Susp 30 Ml Cup) 30 ml PO BID PRN PRN Reason: Constipation Ondansetron HCl (Ondansetron 4 Mg/2 Ml Sdv) 4 mg IVPUSH Q4H PRN PRN Reason: Nausea Oxycodone HCl (Oxycodone 5 Mg Tab) 5 mg PO Q4H PRN PRN Reason: Pain Last Admin: 10/02/20 04:22 Dose: 5 mg Documented by: Senna/Docusate Sodium (Docusate Sodium/Sennosides 50-8.6 Mg Tab) 2 tab PO BID [facility] Last Admin: 10/01/20 20:59 Dose: 2 tab Documented by: Sodium Chloride (Sodium Chloride 0.9% 10 Ml Syringe) 10 ml FLUSH ASDIRECTED PRN PRN Reason: Keep Vein Open Witch Ro (Witch Ro Medicated Pads 100/Jar) 1 pad TOP ASDIRECTED PRN PRN Reason: Pain Witch Ro (Witch Ro Medicated Pads 100/Jar) 1 pad TOP ASDIRECTED PRN PRN Reason: Edema Discontinued Medications Bupivacaine HCl (Bupivacaine 0.5% 50 Ml Mdv) Confirm Administered Dose 50 ml .ROUTE .STK-MED ONE Stop: 09/29/20 21:03 Last Admin: 09/29/20 21:52 Dose: 10 ml Documented by: Carboprost Tromethamine (Carboprost Tromethamine 250 Mcg/1 Ml Amp) Confirm Administered Dose 250 mcg .ROUTE .STK-MED ONE Stop: 09/29/20 19:31 Last Admin: 09/29/20 22:21 Dose: Not Given Documented by: Cefoxitin Sodium (Cefoxitin 2 Gm Vial) Confirm Administered Dose 2 gm .ROUTE .STK-MED ONE Stop: 09/29/20 21:28 Dexamethasone (Dexamethasone 4 Mg/Ml Sdv) Confirm Administered Dose 4 mg .ROUTE .STK-MED ONE Stop: 09/29/20 20:51 Droperidol (Droperidol 5 Mg/2 Ml Sdv) Confirm Administered Dose 5 mg .ROUTE .STK-MED ONE Stop: 09/29/20 22:12 Ephedrine Sulfate (Ephedrine 50 Mg/Ml Sdv) 10 mg IVPUSH ASDIRECTED PRN PRN Reason: Hypotension Ephedrine Sulfate (Ephedrine 50 Mg/Ml Sdv) Confirm Administered Dose 50 mg .ROUTE .STK-MED ONE Stop: 09/29/20 21:48 Fentanyl (Fentanyl 100 Mcg/2 Ml Sdv) 100 mcg IVPUSH ONETIME STA Stop: 09/29/20 16:33 Last Admin: 09/29/20 16:50 Dose: 100 mcg Documented by: Fentanyl (Fentanyl 100 Mcg/2 Ml Sdv) Confirm Administered Dose 100 mcg .ROUTE .STK-MED ONE Stop: 09/29/20 20:50 Fentanyl (Fentanyl 100 Mcg/2 Ml Sdv) Confirm Administered Dose 100 mcg .ROUTE .STK-MED ONE Stop: 09/29/20 22:05 Hydromorphone HCl (Hydromorphone/Normal Saline 15 Mg/30 Ml Derrick [employer]) 0 mg IV ASDIRECTED PRN; Protocol 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 Last Admin: 09/29/20 23:37 Dose: 15 mg Documented by: Oxytocin/Sodium Chloride (Pitocin In Ns 20 Units/1,000 Ml) 20 unit in 1,000 mls @ 3 mls/hr IV TITRATE ANASTACIO; Protocol Last Admin: 09/29/20 19:00 Dose: 333 munits/min, 999 mls/hr Documented by: Lactated Ringer's (Ringers, Lactated) 1,000 mls @ 999 mls/hr IV .BOLUS ONE Stop: 09/29/20 18:21 Last Admin: 09/29/20 17:30 Dose: 999 mls/hr Documented by: Ropivacaine (Naropin 0.2%) Confirm Administered Dose 100 mls @ as directed .ROUTE .STK-MED ONE Stop: 09/29/20 18:32 Oxytocin/Sodium Chloride (Pitocin In Ns 20 Units/1,000 Ml) Confirm Administered Dose 20 unit in 1,000 mls @ as directed .ROUTE .STK-MED ONE Stop: 09/29/20 19:17 Last Admin: 09/29/20 22:26 Dose: Not Given Documented by: Sodium Chloride (Normal Saline) Confirm Administered Dose 50 mls @ as directed .ROUTE .[facility] ONE Stop: 09/29/20 19:56 Last Admin: 09/29/20 22:22 Dose: Not Given Documented by: Sodium Chloride (Normal Saline) Confirm Administered Dose 10 mls @ as directed .ROUTE .[facility] ONE Stop: 09/29/20 21:28 Acetaminophen (Ofirmev 1000 Mg/100 Ml) Confirm Administered Dose 100 mls @ as directed .ROUTE .[facility] ONE Stop: 09/29/20 21:30 Sodium Chloride (Normal Saline) Confirm Administered Dose 10 mls @ as directed .ROUTE .[facility] ONE Stop: 09/29/20 21:48 Lactated Ringer's (Ringers, Lactated) Confirm Administered Dose 1,000 mls @ as directed .ROUTE .[facility] ONE Stop: 09/29/20 22:07 Oxytocin/Sodium Chloride (Pitocin In Ns 20 Units/1,000 Ml) 20 unit in 1,000 mls @ 125 mls/hr IV ONETIME ONE; Protocol Stop: 09/30/20 03:29 Last Admin: 09/29/20 20:00 Dose: 125 mls/hr, 125 mls/hr Documented by: Tranexamic Acid 1,000 mg/ (Sodium Chloride) 60 mls @ 200 mls/hr IV ONETIME ONE Stop: 09/29/20 23:25 Last Admin: 09/29/20 20:00 Dose: 200 mls/hr Documented by: Dextrose/Lactated Ringer's (Dextrose 5%-Lactated Ringers) 1,000 mls @ 150 mls/hr IV ASDIRECTED [facility] Last Admin: 09/29/20 23:45 Dose: 150 mls/hr Documented by: Dextrose/Lactated Ringer's (Dextrose 5%-Lactated Ringers) 1,000 mls @ 0 mls/hr IV ASDIRECTED [facility] Lidocaine HCl (Lidocaine 1% 50 Ml Mdv) Confirm Administered Dose 50 ml .ROUTE .[facility] ONE Stop: 09/29/20 19:17 Last Admin: 09/29/20 22:26 Dose: Not Given Documented by: Lidocaine HCl (Lidocaine 1% 20 Ml Mdv) 10 ml INJECT ONETIME ONE Stop: 09/29/20 19:31 Last Admin: 09/29/20 23:07 Dose: 10 ml Documented by: Lidocaine/Epinephrine (Lidocaine 1% With Epinephrine 1:100,000 50 Ml Mdv) Confirm Administered Dose 50 ml .ROUTE .STK-MED ONE Stop: 09/29/20 21:03 Meropenem (Meropenem 500 Mg Sdv) Confirm Administered Dose 500 mg .ROUTE .STK- MED ONE Stop: 09/29/20 21:37 Last Admin: 09/29/20 21:40 Dose: 500 mg Documented by: Methylergonovine Maleate (Methylergonovine 0.2 Mg/1 Ml Amp) Confirm Administered Dose 0.2 mg .ROUTE .STK-MED ONE Stop: 09/29/20 19:31 Last Admin: 09/29/20 22:21 Dose: Not Given Documented by: Midazolam HCl (Midazolam 1 Mg/Ml 2 Ml Sdv) Confirm Administered Dose 2 mg .ROUTE .STK-MED ONE Stop: 09/29/20 20:51 Mineral Oil (Mineral Oil 10 Ml Bottle) Confirm Administered Dose 10 ml .ROUTE .STK-MED ONE Stop: 09/29/20 19:17 Last Admin: 09/29/20 22:20 Dose: Not Given Documented by: Misoprostol (Misoprostol 50 Mcg (1/2 Of 100 Mcg) Tab) Confirm Administered Dose 50 mcg .ROUTE .STK-MED ONE Stop: 09/29/20 07:58 Last Admin: 09/29/20 08:56 Dose: Not Given Documented by: Misoprostol (Misoprostol 50 Mcg (1/2 Of 100 Mcg) Tab) 50 mcg VAG ONETIME ONE Stop: 09/29/20 07:58 Last Admin: 09/29/20 07:57 Dose: 50 mcg Documented by: Misoprostol (Misoprostol 200 Mcg Tab) Confirm Administered Dose 800 mcg .ROUTE .STK-MED ONE Stop: 09/29/20 19:31 Last Admin: 09/29/20 22:26 Dose: Not Given Documented by: Misoprostol (Misoprostol 200 Mcg Tab) 1,000 mcg PO ONETIME ONE Stop: 09/30/20 19:31 Misoprostol (Misoprostol 200 Mcg Tab) 1,000 mcg PO ONETIME ONE Stop: 09/29/20 19:31 Last Admin: 09/29/20 19:30 Dose: 1,000 mcg Documented by: Naloxone HCl (Naloxone 0.4 Mg/Ml Sdv) Confirm Administered Dose 0.4 mg .ROUTE .STK-MED ONE Stop: 09/29/20 19:17 Last Admin: 09/29/20 22:21 Dose: Not Given Documented by: Naloxone HCl (Naloxone 0.4 Mg/Ml Sdv) 0.1 mg IV ASDIRECTED PRN PRN Reason: decreased respiratory rate Ondansetron HCl (Ondansetron 4 Mg/2 Ml Sdv) Confirm Administered Dose 4 mg .ROUTE .STK-MED ONE Stop: 09/29/20 20:51 Oxytocin (Oxytocin 10 Units/1 Ml Sdv) Confirm Administered Dose 10 unit .ROUTE .STK-MED ONE Stop: 09/29/20 19:17 Last Admin: 09/29/20 22:21 Dose: Not Given Documented by: Propofol (Propofol 200 Mg/20 Ml Sdv) Confirm Administered Dose 200 mg .ROUTE .STK-MED ONE Stop: 09/29/20 20:51 Rocuronium [place] (Rocuronium 50 Mg/5 Ml Vial) Confirm Administered Dose 50 mg .ROUTE .STK-MED ONE Stop: 09/29/20 20:51 Succinylcholine Chloride (Succinylcholine 200 Mg/10 Ml Mdv) Confirm Administered Dose 200 mg .ROUTE .STK-MED ONE Stop: 09/29/20 20:51 Witch Ro (Witch Ro Medicated Pads 100/Jar) 1 pad TOP ASDIRECTED ONE Stop: 09/29/20 21:14 Last Admin: 09/30/20 00:49 Dose: Not Given Documented by: - Exam General: Alert, Oriented HEENT: Pupils Equal, Pupils Reactive, Mucous Membr. Moist/[place] Neck: Supple Lungs: Clear to Auscultation, Normal Respiratory Effort Cardiovascular: Regular Rate, Regular Rhythm. No: No Murmurs GI/Abdominal Exam: Normal Bowel Sounds, Soft Back Exam: Normal Inspection, Full Range of Motion Extremities: Normal Inspection Skin: Warm, Dry Wound/Incisions: Healing Well Neurological: No New Focal Deficit Psy/Mental Status: Alert, Other (grieving as expected) - Patient Data Result Diagrams: 10/01/20 04:15 Sepsis Event Note - Evaluation Sepsis Screening Result: No Definite Risk - Focused Exam Vital Signs: Vital Signs Temp Pulse Resp BP Pulse Ox 10/02/20 07:46 36.1 C 67 16 108/52 L 97 10/02/20 04:29 35.7 C L 80 16 113/63 99 10/01/20 23:29 36.4 C 83 16 120/72 98 - Problem List & Annotations (1) Fourth degree perineal tear during delivery with problem SNOMED Code(s): 374577169 Code(s): O70.3 - FOURTH DEGREE PERINEAL LACERATION DURING DELIVERY Status: Acute Current Visit: Yes (2) Hemorrhage after vaginal delivery SNOMED Code(s): 27255004 Code(s): O72.2 - DELAYED AND SECONDARY HEMORRHAGE Status: Acute Current Visit: Yes (3) Hypertension affecting SNOMED Code(s): 86484641081438 Code(s): O16.9 - UNSPECIFIED MATERNAL HYPERTENSION, UNSPECIFIED TRIMESTER Status: Acute Current Visit: Yes Qualifiers: Trimester: third trimester Qualified Code(s): O16.3 - Unspecified maternal hypertension, third trimester (4) Hyperthyroidism complicating SNOMED Code(s): 55708424203280 Code(s): O99.280 - ENDO, NUTRITIONAL AND METAB DISEASES COMP PREG, UNSP TRI; E05.90 - THYROTOXICOSIS, UNSP WITHOUT THYROTOXIC CRISIS OR STORM Status: Acute Current Visit: Yes Qualifiers: (5) Normal stillborn SNOMED Code(s): 946496498 Code(s): P95 - STILLBIRTH Status: Acute Current Visit: Yes (6) SNOMED Code(s): 92913121 Code(s): Z34.90 - ENCNTR FOR SUPRVSN OF NORMAL , UNSP, UNSP TRIMESTER Status: Acute Current Visit: Yes Qualifiers: Weeks of gestation: 39 weeks Qualified Code(s): Z3A.39 - 39 weeks gestation of - Problem List Review Problem List Initiated/Reviewed/Updated: Yes - Assessment Assessment:: 39 3/7 week with complications. 4th degree tear and hemorrhage, stillborn baby girl 10/02/20 4th degree tear being followed by surgical team, pain is controlled, bleeding is light and FF Hgb stable Grieving as expected, doing well overall, talkative and has family support - Plan Plan:: 09/29/20 39 2/7 weeks. G1 history of hyperthyroid of and gestational hypertension doing well, reactive NST. 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
[2020-10-02] MEDS: Docusate Sodium 100 MG Cap PO SCH (10:25)
[2020-10-02] MEDS ORDERED: Levofloxacin 500 MG Tab PO ONE (11:30)
--- NOTE | 2020-10-04 12:09 | OR ---
DATE OF PROCEDURE: 09/29/2020 SURGEON: Narinder Huddleston MD PREOPERATIVE DIAGNOSIS: Fourth-degree vaginal tear. POSTOPERATIVE DIAGNOSIS: Fourth-degree vaginal tear. OPERATIVE PROCEDURE: Exploration and reconstruction of fourth-degree vaginal tear. INDICATION FOR PROCEDURE: This is a 25-year-old female who unfortunately delivered a stillborn earlier this evening. During the delivery an episiotomy posterior was undertaken per Jessie Maurice CNM and during the delivery the patient developed fairly extensive tear beginning at the level of the episiotomy and extending roughly 3 to 4 cm above the junction of the vaginal and anal mucosa. This appeared to be and was confirmed intraoperatively to be a full-thickness tear through the vagina, external and internal sphincter musculature and anorectal mucosa. The patient had continued significant bleeding from the area and the plan is to proceed with the repair of this. Potential risks were reviewed with the patient and including bleeding, infection, possible breakdown of the repair resulting in rectovaginal fistula, possible stenosis of the vaginal or rectal opening and possible need for subsequent reconstructive operations were gone over and they wished to proceed. The patient is receiving preoperative cefoxitin. DETAILS OF PROCEDURE: The patient was taken to the operating room after general endotracheal anesthetic was induced, was placed in a lithotomy position. A vaginal and anorectal prep was then performed. Examination confirmed the initial preoperative impression of the full-thickness tear of the vaginal mucosa, internal and external sphincters and rectal mucosa to roughly 4 cm from the junction of the vaginal and anal openings. The area was initially irrigated with meropenem containing saline solution. Fortunately there was no stool present, essentially none was seen during the course of the procedure. Initially, the internal sphincter and rectal musculature was approximated with running 2-0 Vicryl stitch. Care was taken to seek the fibrous component along the edge of the musculature to facilitate more adequate closure. The internal anal sphincter musculature did retract laterally in each direction, but was identifiable with the glistening white fibrous structure along its posterior edge. Once this was accomplished, the external sphincter was approximated. This was approximated initially with a 2-0 Vicryl stitch placed superiorly and posteriorly as an interrupted stitch, [id number] stitch to the of the external sphincter was then accomplished also with 2-0 Vicryl stitch and then the anterior and inferior interrupted sutures were placed in with 2-0 Vicryl stitch. This appeared to satisfactorily complete the reapproximation of the external sphincter. Vaginal mucosa was then approximated with a running 3-0 Vicryl stitch and then finally with an anal retractor in place, the rectal and anal mucosa were approximated with a running 3-0 Vicryl stitch from within, and at that point some vaginal packing was placed, Virk catheter had been inserted, and the patient was taken to the recovery room in satisfactory condition. There were no evident additional complications. Narinder Huddleston MD /[id number]
== END 2020-10-02 12:30 | disposition home or self-care (01) | DRG 768 ==
LOC: JP.OB 06:56 → OBSVTOIN 21:13 → JP.MS 23:03
PROVIDERS: ADMIT Nurse Practitioner Family; ATTEND Nurse Practitioner Family
PROC: 0DQP0ZZ Repair Rectum, Open Approach (ICD-10-PCS; principal; 2020-09-29)
PROC: 10D07Z6 Extraction of Products of Conception, Vacuum, Via Natural or Artificial Opening (ICD-10-PCS; 2020-09-29)
PROC: XW033N5 Introduction of Meropenem-vaborbactam Anti-infective into Peripheral Vein, Percutaneous Approach, New Technology Group 5 (ICD-10-PCS; 2020-09-29)
PROC: 10907ZC Drainage of Amniotic Fluid, Therapeutic from Products of Conception, Via Natural or Artificial Opening (ICD-10-PCS; 2020-09-29)
PROC: 0W8NXZZ Division of Female Perineum, External Approach (ICD-10-PCS; 2020-09-29)
PROC: 3E0P7VZ Introduction of Hormone into Female Reproductive, Via Natural or Artificial Opening (ICD-10-PCS; 2020-09-29)
PROC: 3E0R3BZ Introduction of Anesthetic Agent into Spinal Canal, Percutaneous Approach (ICD-10-PCS; 2020-09-29)
PROC: 00HU33Z Insertion of Infusion Device into Spinal Canal, Percutaneous Approach (ICD-10-PCS; 2020-09-29)
PROC: 30233N1 Transfusion of Nonautologous Red Blood Cells into Peripheral Vein, Percutaneous Approach (ICD-10-PCS; 2020-09-30)
DX: O16.3 Unspecified maternal hypertension, third trimester (principal); Z37.1 Single stillbirth; O72.2 Delayed and secondary postpartum hemorrhage; O70.3 Fourth degree perineal laceration during delivery; O99.284 Endocrine, nutritional and metabolic diseases complicating childbirth; O69.1XX0 Labor and delivery complicated by cord around neck, with compression, not applicable or unspecified; E05.90 Thyrotoxicosis, unspecified without thyrotoxic crisis or storm; O77.0 Labor and delivery complicated by meconium in amniotic fluid; Z20.822 Contact with and (suspected) exposure to COVID-19; O99.52 Diseases of the respiratory system complicating childbirth; J45.909 Unspecified asthma, uncomplicated; Z3A.39 39 weeks gestation of pregnancy
CPT/HCPCS: 36415; 36430; 80305-QW; 81001; 85018; 85025; 85027; 86850; 86900; 86901; 86920; 86922; 94762; A9270-GY; J0131; J0330; J0694; J1100; J1170; J1790; J2001; J2185; J2250; J2405; J2590; J2704; J2795; J3010; J3490; J7120; J7121; P9016; U0002